=== PATIENT | female | born 1985 | race Caucasian/White ===

== ENCOUNTER → 2018-02-26 | Outpatient (REF) | LOC: M SMT 14:08 | DX: M54.5 Low back pain (principal) ==

== ENCOUNTER → 2025-09-22 | Outpatient (REF) ==
[~2025-09-22] MED LIST: METH-1165 PO; TIZA2TA PO
== END ==
LOC: M PLAIMG 11:12
PROVIDERS: ATTEND Internal Medicine
DX: R52 Pain, unspecified (principal)